=== PATIENT | female | born 1940 | race Hispanic/Latino ===

== ENCOUNTER 2017-05-27 12:41 | Emergency (ER) | payer MEDICARE ==
[2017-05-27 12:42] VITALS: BMI 24.7
[2017-05-27 13:00] VITALS: RESP 18; TEMP 97.7
--- NOTE | 2017-05-27 16:12 | RAD ---
PROCEDURE: Radiographs of the Chest and Left Ribs. HISTORY: Rib pain COMPARISON: None available. TECHNIQUE: Frontal radiograph of the chest and multiple oblique radiographs of the left ribs were obtained. FINDINGS: LEFT RIBS: No acute fracture or destructive bony lesion. LUNGS: The lungs are well inflated and clear. PLEURA: No pneumothorax or pleural fluid. CARDIOVASCULAR: Normal sized heart. No pulmonary vascular congestion. OTHER FINDINGS: None. IMPRESSION: No acute rib fracture or destructive bony lesion. Clear lungs.
[2017-05-27 17:38] VITALS: BP 148/78; PULSE 77; O2SAT 95
[2017-05-27 18:05] LABS: ALB/GLOB RATIO 1.6 (1.1-1.8); ALBUMIN 4.3 g/dL (3.0-4.8); ALT/SGPT 27 U/L (7-56); AST/SGOT 22 U/L (14-36); BASO # 0.01 K/mm3 (0.0-2.0); BASO % 0.1 % (0.0-3.0); BLOOD UREA NITROGEN 19 mg/dL (7-21); CALCIUM 9.6 mg/dL (8.4-10.5); EOS # 0.1 (0.0-0.7); EOS % 1.4 % (1.5-5.0); GFR AFRICAN-AMERICAN > 60; GFR NON-AFRICAN AMERICAN > 60; GRAN # 5.17 (1.4-6.5); GRAN % 64.6 % (50.0-68.0); HEMOGLOBIN 11.5 g/dL (12.0-16.0); LIPASE 99 U/L (23-300); LYMPH # 2.4 (1.2-3.4); LYMPH % 29.6 % (22.0-35.0); MEAN CELL VOLUME 84.8 fl (80.0-105.0); MEAN CORPUSCULAR HEMOGLOBIN 28.2 pg (25.0-35.0); MEAN CORPUSCULAR HGB CONC 33.2 g/dl (31.0-37.0); MEAN PLATELET VOLUME 10.6 fl (7.0-11.0); MONO # 0.3 (0.1-0.6); MONO % 4.3 % (1.0-6.0); RBC 4.08 10^6/uL (3.5-6.1); RED CELL DISTRIBUTION WIDTH 13.7 % (11.5-14.5)
[2017-05-27] MEDS ORDERED: Iohexol 350 MG/100 ML VIAL ONE (18:18)
[2017-05-27 18:19] LABS: INR 1.13 (0.93-1.08); PROTHROMBIN TIME 12.4 SECONDS (9.4-12.5)
[2017-05-27] MEDS ORDERED: Potassium Chloride 20 mEq ER Tab PO STA (18:20)
--- NOTE | 2017-05-27 18:49 | CT ---
PROCEDURE: CT Abdomen and Pelvis with contrast HISTORY: Abdominal pain COMPARISON: CT abdomen and pelvis without contrast performed 01/14/14 TECHNIQUE: Contrast dose: 100 cc Omnipaque 300 Radiation dose: Total exam DLP = 395.95 mGy-cm. This CT exam was performed using one or more of the following dose reduction techniques: Automated exposure control, adjustment of the mA and/or kV according to patient size, and/or use of iterative reconstruction technique. FINDINGS: LOWER THORAX: Mild bibasilar atelectasis. No visible pleural effusion or pneumothorax. Small hiatal hernia/distal esophageal wall thickening. LIVER: 3 mm too small to characterize left hepatic hypodensity. GALLBLADDER AND BILE DUCTS: Cholelithiasis. Gallbladder distension. PANCREAS: Pancreatic atrophy. SPLEEN: Unremarkable. ADRENALS: Unremarkable. KIDNEYS AND URETERS: The kidneys enhance symmetrically. No hydronephrosis or obstructing calculus identified. Nonobstructing bilateral renal calculi. Bilateral low-density renal lesions appear consistent with cysts. VASCULATURE: Dense atherosclerotic calcifications. Infra renal calcifications within the mid aorta above the bifurcation, similar prior imaging in 2013; correlate for history of chronic dissection. Atherosclerotic plaque. No aortic aneurysm. BOWEL: Stomach is nondistended. Lack of oral contrast limits evaluation for bowel pathology. Bowel loops appear within normal limits of caliber without evidence of obstruction. APPENDIX: The appendix appears within normal limits of caliber. No secondary signs of acute appendicitis. PERITONEUM: No significant free fluid. No definite free air. LYMPH NODES: No bulky adenopathy identified. BLADDER: Unremarkable. REPRODUCTIVE: Heterogeneous pelvic mass containing fat and soft tissue attenuation, as described above, possibly teratomas/dermoid. BONES: No acute osseous abnormality is detected. . OTHER FINDINGS: None. IMPRESSION: Gallbladder distension with cholelithiasis. Correlate clinically for possibility of cholecystitis. Bilateral low-density renal lesions appear consistent with cysts. Nonobstructing bilateral renal calculi. Heterogeneous pelvic mass is re-identified containing fatty density and soft tissue components; teratoma/dermoid suspected. Correlate clinically. Dense atherosclerotic calcifications. Infra renal calcifications within the mid aorta above the bifurcation, similar prior imaging in 2013; correlate for history of chronic dissection. Atherosclerotic plaque. No aortic aneurysm. Additional findings as above.
--- NOTE | 2017-05-27 19:08 | ED PDOC ---
Arrival/HPI - General Chief Complaint: Abdominal Pain Time Seen by Provider: 05/27/17 13:39 Historian: Patient - History of Present Illness Narrative History of Present Illness (Text): 05/27/17 19:05 77yo female with PMHx of hypercholestrol , Diabetes, who present with complaint of left anterior ribs pain x one week. She states pain is worse with deep inspiration, and movement. She took Tylenol yesterday with some relieve. She denies fever, chills, SOB, diaphoresis, LE edema, calf pain, nausea, vomiting, diarrhea, abdominal pain. Past Medical History - Provider Review Nursing Documentation Reviewed: Yes - Infectious Disease Hx of Infectious Diseases: None - Cardiac Hx VT: Yes Hx Hypertension: Yes - Pulmonary Hx Respiratory Disorders: Yes (SMOKES .PK LASTS 2 D) Hx Chronic Obstructive Pulmonary Disease (COPD): Yes - Neurological Hx Paralysis: No - HEENT Hx HEENT Disorder: Yes (WEARS RX GLASSES) Hx Cataracts: Yes (WITH SURGERY) - Renal Hx Kidney Stones: Yes - Endocrine/Metabolic Hx Diabetes Mellitus Type 2: Yes - Hematological/Oncological Hx Blood Transfusions: No Hx Blood Transfusion Reaction: No - Musculoskeletal/Rheumatological Hx Musculoskeletal Disorders: Yes - Gastrointestinal Hx Gastrointestinal Disorders: Yes Hx Gall Bladder Disease: Yes (GALLSTONES) Hx Gastroesophageal Reflux: Yes - Psychiatric Hx Emotional Abuse: No Hx Physical Abuse: No Hx Substance Use: No - Surgical History Hx Cataract Extraction: Yes Hx Cardiac Catheterization: Yes (stent x1) - Anesthesia Hx Anesthesia: Yes Hx Anesthesia Reactions: No Hx Malignant Hyperthermia: No - Suicidal Assessment Feels Threatened In Home Enviroment: No Family/Social History - Physician Review Nursing Documentation Reviewed: Yes Family/Social History: Unknown Family HX Smoking Status: Current Some Days Smoker Hx Alcohol Use: No Hx Substance Use: No Hx Substance Use Treatment: No Allergies/Home Meds Allergies/Adverse Reactions: Allergies No Known Allergies Allergy (Verified 01/14/14 07:49) Home Medications: Home Meds Medication Instructions Recorded Confirmed Atorvastatin [Lipitor] 20 mg PO HS 01/20/14 05/27/17 Clopidogrel [Plavix] 75 mg PO DAILY 01/20/14 05/27/17 Aspirin [Ecotrin] 81 mg PO DAILY 01/05/16 05/27/17 Multivit,Iron,Mins/Folic Acid 1 tab PO DAILY 01/05/16 05/27/17 [[facility] Tab] Furosemide [Lasix] 1 tab PO DAILY 05/27/17 05/27/17 metFORMIN [glucOPHAGE] 1 tab PO BID 05/27/17 05/27/17 Review of Systems - Physician Review All systems were reviewed & negative as marked: Yes - Review of Systems Constitutional: Normal Eyes: Normal ENT: Normal Respiratory: Normal Cardiovascular: Normal Gastrointestinal: Normal Genitourinary Female: Normal Musculoskeletal: Arthralgias (Left ribs pain) Skin: Normal Neurological: Normal Endocrine: Normal Hemo/Lymphatic: Normal Psychiatric: Normal Physical Exam Vital Signs Reviewed: Yes Vital Signs Temp Pulse Resp BP Pulse Ox 05/27/17 17:30 97.7 F 77 18 148/78 95 05/27/17 15:00 86 18 152/72 H 96 05/27/17 13:00 97.7 F 90 18 136/84 96 Temperature: Afebrile Blood Pressure: Normal Pulse: Regular Respiratory Rate: Normal Appearance: Positive for: Well-Appearing, Non-Toxic, Comfortable Pain Distress: None Mental Status: Positive for: Alert and Oriented X 3 - Systems Exam Head: Present: Atraumatic, Normocephalic Pupils: Present: PERRL Extroacular Muscles: Present: EOMI Conjunctiva: Present: Normal Mouth: Present: Moist Mucous Membranes Neck: Present: Normal Range of Motion Respiratory/Chest: Present: Clear to Auscultation, Good Air Exchange, Tender to Palpation (Tenderness over the anterior left ribs/sternal angle). No: Respiratory Distress, Accessory Muscle Use, Wheezes, Decreased Breath Sounds, Rales, Retracting, Rhonchi, Tachypneic Cardiovascular: Present: Regular Rate and Rhythm, Normal S1, S2. No: Murmurs Abdomen: Present: Normal Bowel Sounds. No: Tenderness, Distention, Peritoneal Signs Back: Present: Normal Inspection Upper Extremity: Present: Normal Inspection. No: Cyanosis, Edema Lower Extremity: Present: Normal Inspection. No: Edema Neurological: Present: GCS=15, CN II-XII Intact, Speech Normal Skin: Present: Warm, Dry, Normal Color. No: Rashes Psychiatric: Present: Alert, Oriented x 3, Normal Insight, Normal Concentration Medical Decision Making ED Course and Treatment: 05/27/17 19:09 PT was hemodynamically stable and comfortable in ED. She was noted to tolerate food in ED. Rib/chest xray - Negative for fracture/PTX Lab was reviewed and potassium was repleted Abdominal/Pelvis CT Result was DW both pt and the family she was seen by Dr. Jaquez at the bedside and he wants pt DC if imaging is negative. Rx of Tramadol is given. - Lab Interpretations Lab Results: 05/27/17 17:31 05/27/17 17:31 Lab Results 05/27/17 17:31: Sodium 140, Potassium 3.0 L, Chloride 98, Carbon Dioxide 29, Anion Gap 16, BUN 19, Creatinine 0.8, Est GFR ( Amer) > 60, Est GFR (Non- Af Amer) > 60, Random Glucose 105, Calcium 9.6, Total Bilirubin 0.4, AST 22, ALT 27, Alkaline Phosphatase 57, Total Protein 7.1, Albumin 4.3, Globulin 2.8, Albumin/Globulin Ratio 1.6, Lipase 99 05/27/17 17:31: PT 12.4, INR 1.13 H, APTT 31.0 05/27/17 17:31: WBC 8.0, RBC 4.08, Hgb 11.5 L, Hct 34.6 L, MCV 84.8, MCH 28.2, MCHC 33.2, RDW 13.7, Plt Count 215, MPV 10.6, Gran % 64.6, Lymph % (Auto) 29.6, Beadle % (Auto) 4.3, Eos % (Auto) 1.4 L, Baso % (Auto) 0.1, Gran # 5.17, Lymph # 2.4, Beadle # 0.3, Eos # 0.1, Baso # 0.01 - RAD Interpretation Radiology Orders: 05/27/17 13:40 RIBS LEFT & PA CHEST [RAD] Stat 05/27/17 16:43 ABD & PELVIS IV CONTRAST ONLY [CT] Stat - Medication Orders Current Medication Orders: Discontinued Medications Potassium Chloride (K-Dur 20 Meq Er Tab) 40 meq PO STAT STA Stop: 05/27/17 18:21 Tramadol HCl (Ultram) 50 mg PO STAT STA Stop: 05/27/17 13:58 Last Admin: 05/27/17 14:45 Dose: 50 mg [facility] Pain Assessment Document 05/27/17 14:45 OCS (Rec: 05/27/17 14:45 OCS [facility] [id number]) Pain Reassessment Is this a pain reassessment? Yes Sleep Is patient sleeping during reassessment? No Presence of Pain Presence of Pain Yes Pain Scale Used Pain Scale Used Numeric Location Left, Right or Bilateral Left Upper or Lower Upper Pain Location Body Site Abdomen Description Description Constant Disposition/Present on Arrival - Present on Arrival Any Indicators Present on Arrival: No History of DVT/PE: No History of Uncontrolled Diabetes: No Urinary Catheter: No History of Decub. Ulcer: No History Surgical Site Infection Following: None - Disposition Have Diagnosis and Disposition been Completed?: Yes Diagnosis: Rib pain, Cholelithiasis Disposition: HOME/ ROUTINE Disposition Time: 19:15 Patient Plan: Discharge Condition: STABLE Discharge Instructions (ExitCare): Chest Pain (ED) Additional Instructions: Follow up with your doctor Return to ED for any new or worsening symptoms Prescriptions: traMADol [Ultram] 50 mg PO TID #10 tab Referrals: Priyank Jaquez DO [Primary Care Provider] - Follow up with primary
== END 2017-05-27 19:50 | disposition home or self-care (01) ==
LOC: ED 12:41
DX: R07.81 Pleurodynia (principal); K80.20 Calculus of gallbladder without cholecystitis without obstruction; E11.9 Type 2 diabetes mellitus without complications; I10 Essential (primary) hypertension
CPT/HCPCS: 71101; 74177; 80053; 83690; 85025; 85610; 85730; 99283; Q9967

== ENCOUNTER 2018-09-03 06:03 | Outpatient (CLI) | payer MEDICARE | END 2018-09-03 06:04 | disposition home or self-care (01) | LOC: CARDIO 06:03 | DX: I25.10 Atherosclerotic heart disease of native coronary artery without angina pectoris (principal) ==

== ENCOUNTER 2018-09-09 06:24 | Day surgery (SDC) | payer MEDICARE ==
[2018-09-07 09:39] VITALS: BMI 27.6
[2018-09-09] MEDS ORDERED: Lidocaine PF 2% (5 ml) Inj (For Cardiac Arrhy) ONE (07:05)
[2018-09-09] MEDS ORDERED: Iodixanol 320 MG/ML 100 ML BOTTLE IV ONE (07:06)
[2018-09-09] MEDS ORDERED: Iodixanol 320 MG/ML 200 ML BOTTLE IV ONE (07:06)
[2018-09-09] MEDS ORDERED: Iohexol 350mgl/ml 50 ML ONE (07:06)
[2018-09-09] MEDS ORDERED: Phenylephrine 10 mg/ml Inj ONE (07:07)
[2018-09-09] MEDS ORDERED: Nitroglycerin 50mg in D5W 0 MG/0 ML BOTTLE IV ONE (07:07)
[2018-09-09 07:12] VITALS: RESP 18
[2018-09-09 07:13] LABS: BASO # 0.01 K/mm3 (0.0-2.0); BASO % 0.1 % (0.0-3.0); EOS # 0.2 (0.0-0.7); EOS % 2.3 % (1.5-5.0); HEMOGLOBIN 11.6 g/dL (12.0-16.0); LYMPH # 2.1 (1.2-3.4); LYMPH % 28.2 % (22.0-35.0); MEAN CELL VOLUME 84.9 fl (80.0-105.0); MEAN CORPUSCULAR HEMOGLOBIN 26.9 pg (25.0-35.0); MEAN CORPUSCULAR HGB CONC 31.7 g/dl (31.0-37.0); MEAN PLATELET VOLUME 10.5 fl (7.0-11.0); MONO # 0.4 (0.1-0.6); MONO % 4.8 % (1.0-6.0); RBC 4.31 10^6/uL (3.5-6.1); RED CELL DISTRIBUTION WIDTH 14.2 % (11.5-14.5); WHITE BLOOD COUNT 7.5 10^3/uL (4.5-11.0)
[2018-09-09 07:19] LABS: INR 1.16; PARTIAL THROMBOPLASTIN TIME 33.2 Seconds (26.9-38.3); PROTHROMBIN TIME 13.1 SECONDS (9.4-12.5)
[2018-09-09 07:31] LABS: BLOOD UREA NITROGEN 14 mg/dL (7-21); CALCIUM 9.4 mg/dL (8.4-10.5); GFR NON-AFRICAN AMERICAN > 60; HDL CHOLESTEROL 46 mg/dL (29-60)
[2018-09-09 07:41] LABS: LDL CHOLESTEROL 73 mg/dL (0-129)
[2018-09-09] MEDS ORDERED: Midazolam 2 MG/2 ML VIAL ONE ×2 (07:50→07:52)
[2018-09-09] MEDS ORDERED: Sodium Chloride 0.9% 1,000 ML IV SCH (08:30)
[2018-09-09 08:57] VITALS: TEMP 97.8
--- NOTE | 2018-09-09 09:24 | CARDCATH ---
PROCEDURE DATE: 09/09/2018 HISTORY: The patient is a 78-year-old woman with a history of peripheral vascular disease, documented coronary artery disease with stents in the past, hypertension as well as hypercholesterolemia who presents with an abnormal stress test. She has been complaining of atypical chest pain intermittently. Because of this, cardiac catheterization was recommended. PROCEDURE: Left heart catheterization with coronary arteriography, left ventriculogram and aortogram. The right femoral artery was cannulated with 6-Liberian sheath. There were no complications. The findings, I performed moderate sedation which included the presence of an independent trained observer that assisted in monitoring the patient's level of consciousness and physiologic status. After administration of Versed and fentanyl, my intra service time was 30 minutes. Findings on catheterization revealed diffuse calcification in the coronary tree and aorta. Aortogram revealed diffuse atherosclerosis throughout her aorta including a small abdominal aneurysm which was noted. Her coronary arteries revealed a right-dominant circulation. The RCA was occluded which is chronic. The left main artery revealed intimal irregularities. The calcifications without critical lesions. The LAD revealed diffuse atherosclerosis throughout its course. There was a patent stent in the midportion. The diagonal vessels revealed diffuse atherosclerosis without critical lesions. Circumflex artery and obtuse marginal branch revealed diffuse atherosclerosis and calcification without critical lesions. LV function revealed a mild inferobasal hypokinesis with good overall LV function. Estimated ejection fraction of 55%-60%. There were collaterals going to the mid and distal RCA from the left circulation. AngioSeal was used to close the femoral artery site. The patient tolerated the procedure well. IN SUMMARY: The procedure revealed good LV function with an EF of 55%-60% with mild inferobasal hypokinesis. Her coronary anatomy revealed a chronically occluded RCA, diffusely calcified coronary arteries, a patent stent in the mid LAD, with diffuse atherosclerosis throughout its course. The aorta as well as the femoral arteries were heavily calcified with diffuse atherosclerosis throughout its tree. There is a small abdominal aneurysm noted. Given these findings, the patient will need to continue cardiac risk reduction program. We will obtain serial CT scans to follow her abdominal aneurysm. Johnnie Roman MD
[2018-09-09 09:43] VITALS: O2SAT 99
[2018-09-09 14:49] VITALS: BP 150/70; PULSE 64
== END 2018-09-09 15:30 | disposition home or self-care (01) ==
LOC: CATH 06:24
PROVIDERS: ATTEND Internal Medicine Cardiovascular Disease
DX: I25.10 Atherosclerotic heart disease of native coronary artery without angina pectoris (principal); I25.82 Chronic total occlusion of coronary artery; I71.4 Abdominal aortic aneurysm, without rupture; I10 Essential (primary) hypertension; I73.9 Peripheral vascular disease, unspecified; E11.9 Type 2 diabetes mellitus without complications; E78.00 Pure hypercholesterolemia, unspecified; J44.9 Chronic obstructive pulmonary disease, unspecified; I25.2 Old myocardial infarction; Z95.5 Presence of coronary angioplasty implant and graft; Z79.84 Long term (current) use of oral hypoglycemic drugs
CPT/HCPCS: 36415; 80048; 80061; 85025; 85610; 85730; 86850; 86900; 93458; 93567; 99152; C1760; C1769 ×2; C2629; J1644; J2250; J3010; J7030; Q9966

== ENCOUNTER 2018-10-12 07:10 | Outpatient (CLI) | payer MEDICARE | END 2018-10-12 07:11 | disposition home or self-care (01) | LOC: RAD 07:10 ==